=== PATIENT | female | born 1995 | race Caucasian/White ===

== ENCOUNTER 2021-08-08 01:58 | Inpatient (IN) | payer SELFPAY ==
[2021-08-08] MEDS ORDERED: BUTORPHANOL 2 MG/1 ML INJ IV PRN (02:28)
[2021-08-08] MEDS ORDERED: LIDOCAINE (2%) 20 MG/1 ML VIAL 20 ML MDV INFILTRATI ONE (02:28)
[2021-08-08] MEDS ORDERED: fentaNYL 100 MCG/2 ML INJ IV PRN (02:28)
[2021-08-08] MEDS ORDERED: ACETAMINOPHEN 325 MG TAB PO PRN ×2 (02:28→02:36)
[2021-08-08] MEDS ORDERED: OXYTOCIN 10 UNIT/1 ML INJ IM PRN (02:28)
[2021-08-08] MEDS ORDERED: LACTATED RINGERS 1,000 ML IV SCH (02:30)
--- NOTE | 2021-08-08 02:35 | History and Physical Report ---
History of Present Illness Date of examination: 08/08/21 Date of admission: 08/08/21 01:58 Chief complaint: Contractions and Leakage of Fluid History of present illness: 26 y/o at 37-1/7 weeks presents to OBT via EMS reporting CTX and LOF. Good FM. No VB. In OBT, patient had evidence of gross ROM and SVE was 10 cm dilated. She was admitted to L&D in active labor in anticipation of precipitous delivery. Past History Past Medical History: no pertinent history Past Surgical History: no surgical history Family/Genetic History: none Social history: no significant social history - Obstetrical History Expected Date of Delivery: 08/28/21 Actual Gestation: 37 Week(s) 1 Day(s) : 3 Para: 2 Medications and Allergies Allergies Allergy/AdvReac Type Severity Reaction Status Date / Time No Known Allergies Allergy Unverified 08/08/21 02:09 Review of Systems All systems: negative - Vital Signs Vital signs: Vital Signs Pulse BP 75 118/81 08/08/21 02:07 08/08/21 02:07 Temp Pulse Resp BP Pulse Ox 76 116/81 08/08/21 02:29 08/08/21 02:29 - Physical Exam Breasts: Positive: normal Cardiovascular: Regular rate Lungs: Positive: Normal air movement Abdomen: Positive: normal appearance Genitourinary (Female): Positive: normal external genitalia Vulva: both: normal Vagina: Positive: normal moisture Cervix: Positive: lesion Uterus: Positive: enlarged Adnexa: both: normal Anus/Rectum: Positive: normal perianal skin Extremities: Positive: normal Deep Tendon Reflex Grade: Normal +2 - Obstetrical FHR: category 1 Uterine Contraction Monitor Mode: External Cervical Dilatation: 10 Cervical Effacement Percentage: 100 station: +3 Uterine Contraction Frequency (min): 5 Uterine Contraction Pattern: Regular Uterine Contraction Intensity: Strong/Firm Results All other labs normal. Assessment and Plan - Patient Problems (1) 37 weeks gestation of Current Visit: Yes Status: Acute Plan to address problem: care is up-to-date at [facility] apart from missing her last visit. She is GBS unknown. Day shift RN to attempt to get records in AM. (2) Labor abnormal Current Visit: Yes Status: Acute Plan to address problem: This patient is in active labor. Admit to L&D. Anticipate precipitous .
[2021-08-08] MEDS ORDERED: WITCH HAZEL/ GLYCERIN PAD TP PRN (02:36)
[2021-08-08] MEDS ORDERED: MAGNESIUM HYDROXIDE (MOM) ORAL LIQD UDC PO PRN (02:36)
[2021-08-08] MEDS ORDERED: HYDROCORTISONE 25 MG RECTAL SUPP PR PRN (02:36)
[2021-08-08] MEDS ORDERED: ONDANSETRON 4 MG/2 ML INJ IV PRN (02:36)
[2021-08-08] MEDS ORDERED: PROMETHAZINE 25 MG TAB PO PRN (02:36)
[2021-08-08] MEDS ORDERED: LANOLIN/ZINC/DIMETHICONE (LANSINOH) 7 GM TP PRN (02:36)
[2021-08-08] MEDS ORDERED: diphenhydrAMINE 25 MG CAP PO PRN (02:36)
[2021-08-08] MEDS ORDERED: BENZOCAINE/MENTHOL 20/0.5% TOP SPRAY 56 GM TP PRN (02:36)
--- NOTE | 2021-08-08 02:40 | Procedure Note ---
OB Delivery Note - Delivery Date of Delivery: 08/08/21 Surgeon: ROCKY FISCHER Estimated blood loss: 300cc - Vaginal Delivery position: OA Intrapartum events: precipitous labor- <3hr Delivery induction: none Delivery monitor: external FHT Route of delivery: Delivery placenta: spontaneous Delivery cord: 3 umbilical vessels Episiotomy: none Delivery laceration: other ((L) alicia-urethral and midline alicia-clitoral lacerations repaired with 3-0 Vicryl.) Delivery repair: vicryl Anesthesia: local - A at 1 minute: 8 at 5 minutes: 9 Gender: Female
[2021-08-08] MEDS ORDERED: OXYTOCIN DRIP 30 UNITS/500 ML BAG IV SCH (03:00)
[2021-08-08 03:46] LABS: Hematocrit 32.3 % (30.3-42.9); Hemoglobin 10.4 gm/dl (10.1-14.3); Mean Corpuscular HGB Conc 32 % (30-34); Mean Corpuscular Volume 90 fl (79-97); Platelet Count 168 K/mm3 (140-440); Red Blood Count 3.59 M/mm3 (3.65-5.03); Red Cell Distribution Width 13.3 % (13.2-15.2)
[2021-08-08] MEDS: IBUPROFEN 600 MG TAB PO SCH ×2 (06:36→16:23)
[2021-08-08] MEDS: HYDROcodone/ACETAMINOPHEN 5-325 MG TAB PO PRN (07:35)
[2021-08-09] MEDS: IBUPROFEN 600 MG TAB PO SCH ×4 (00:30→23:58)
[2021-08-09] MEDS ORDERED: TETANUS,DIPH,PERTUSS(ACELL) VACCINE 0.5 ML SYRINGE IM ONE (06:00)
--- NOTE | 2021-08-09 10:39 | Progress Note ---
Assessment and Plan A: PP Day #1 Stable P: Follow Routine Orders Depo Provera 150mg IM x 1 dose D/C home today per patient request RTO in 6 Weeks Subjective - Subjective Date of service: 08/09/21 Patient reports: appetite normal, voiding normally, pain well controlled, flatus, ambulating normally [place]: doing well Objective - Vital Signs Latest vital signs: Vital Signs Temp Pulse Resp BP BP Pulse Ox Pulse Ox 08/09/21 08:20 98 08/09/21 07:40 97.9 F 79 108/69 08/09/21 07:31 97.9 F 78 20 108/69 98 08/08/21 21:50 98 08/08/21 14:59 98.3 F 90 20 115/68 98 - Exam Breasts: Present: normal Cardiovascular: Present: Regular rate Lungs: Present: Clear to auscultation, Normal air movement Abdomen: Present: normal appearance, soft, normal bowel sounds Uterus: Present: normal, firm, fundal height below umbilicus Extremities: Present: normal
--- NOTE | 2021-08-09 10:40 | Discharge Summary ---
Providers - Providers Date of Admission: 08/08/21 01:58 Date of discharge: 08/09/21 Attending physician: ROCKY FISCHER MD Primary care physician: ROCKY FISCHER MD Hospitalization Reason for admission: active labor Delivery: Episiotomy: none Laceration: 1st degree Other procedures: none complications: none Discharge diagnosis: IUP at term delivered baby: female Condition at discharge: Good Disposition: 01 HOME / SELF CARE / HOMELESS Plan - Provider Discharge Summary Activity: routine, no sex for 6 weeks, no heavy lifting 4 weeks, no strenuous exercise Diet: routine Instructions: routine Additional instructions: [] Smoking cessation referral if applicable(refer to patient education folder for contact #) [] Refer to [facility]'s [facility] Booklet Call your doctor immediately for: * Fever > 100.5 * Heavy vaginal bleeding ( >1 pad per hour) * Severe persistent headache * Shortness of breath * Reddened, hot, painful area to leg or breast * Drainage or odor from incision. * Keep incision clean and dry at all times and follow doctor's instructions regarding bathing/showering - Follow up plan Follow up: ROCKY FISCHER MD [Primary Care Provider] - 6 Weeks
[2021-08-09] MEDS ORDERED: medroxyPROGESTERone ACETATE 150 MG/ML SYRINGE IM NR ×2 (11:00→16:00)
[2021-08-09] MEDS ORDERED: FLU VACC QUAD 2021-22(6MOS UP)/PF 60 MCG/0.5 ML SYRINGE IM ONE (12:00)
[2021-08-09] MEDS: HYDROcodone/ACETAMINOPHEN 5-325 MG TAB PO PRN (20:05)
[2021-08-10] MEDS: IBUPROFEN 600 MG TAB PO SCH ×3 (04:58→18:24)
[2021-08-10 09:58] LABS: Basophils % (Auto) 0.4 % (0.0-1.8); Eosinophils # (Auto) 0.3 K/mm3 (0.0-0.4); Eosinophils % (Auto) 2.8 % (0.0-4.3); Hematocrit 31.4 % (30.3-42.9); Hemoglobin 10.5 gm/dl (10.1-14.3); Lymphocytes # (Auto) 2.7 K/mm3 (1.2-5.4); Lymphocytes % (Auto) 28.1 % (13.4-35.0); Mean Corpuscular HGB Conc 34 % (30-34); Mean Corpuscular Volume 90 fl (79-97); Monocytes # (Auto) 0.5 K/mm3 (0.0-0.8); Monocytes % (Auto) 4.8 % (0.0-7.3); Platelet Count 171 K/mm3 (140-440); Red Blood Count 3.51 M/mm3 (3.65-5.03); Red Cell Distribution Width 13.3 % (13.2-15.2)
[2021-08-10 15:56] VITALS: BP 104/60
== END 2021-08-10 20:00 | disposition home or self-care (01) | DRG 807 ==
LOC: LD 01:58 → OB 04:40
PROVIDERS: ADMIT Obstetrics & Gynecology Gynecology; ATTEND Obstetrics & Gynecology Gynecology
PROC: 10E0XZZ Delivery of Products of Conception, External Approach (ICD-10-PCS; principal; 2021-08-08)
PROC: 0UQMXZZ Repair Vulva, External Approach (ICD-10-PCS; 2021-08-08)
PROC: 3E0234Z Introduction of Serum, Toxoid and Vaccine into Muscle, Percutaneous Approach (ICD-10-PCS; 2021-08-09)
DX: O62.3 Precipitate labor (principal); Z37.0 Single live birth; Z3A.37 37 weeks gestation of pregnancy; Z20.822 Contact with and (suspected) exposure to COVID-19; Z23 Encounter for immunization; O71.82 Other specified trauma to perineum and vulva
CPT/HCPCS: 36415; 59025; 85025; 85027; 86850; 86900; 86901; 90715; 96365; 99211; G0378; J3490; G0463; J1050; J2590; U0003